=== PATIENT | male | born 1970 | race Caucasian/White ===

== ENCOUNTER 2019-12-11 09:33 | Emergency (ER) | payer MEDICAID ==
[~2019-12-11] VITALS: Ht 188 cm; Wt 83.6 kg
[2019-12-11] MEDS ORDERED: DOXYCYCLINE HYCLATE 100 MG CAPSULE PO ONE (11:15)
[2019-12-11 11:40] VITALS: BP 113/72
== END 2019-12-11 11:53 | disposition home or self-care (01) ==
LOC: EMS 09:36
DX: L01.00 Impetigo, unspecified (principal); L03.211 Cellulitis of face

== ENCOUNTER 2020-01-24 16:15 | Emergency (ER) | payer MEDICAID ==
[~2020-01-24] VITALS: Ht 188 cm; Wt 80.0 kg
[2020-01-24 17:44] VITALS: BP 149/95
[2020-01-24] MEDS ORDERED: SULFAMETHOX/TRIMETH DS 800-160 MG/TABLET PO ONE (18:00)
[2020-01-24] MEDS ORDERED: CEPHALEXIN MONOHYDRATE 500 MG CAPSULE PO ONE (18:00)
[2020-01-24] MEDS ORDERED: ACETAMINOPHEN 500 MG TABLET PO ONE (18:00)
[2020-01-24] MEDS ORDERED: KETOROLAC TROMETHAMINE 30 MG/ML VIAL IM ONE (19:30)
[2020-01-24 19:47] LABS: AMPHET/METH SCREEN,URINE POSITIVE (NEGATIVE); BARBITURATE SCREEN, URINE NEGATIVE (NEGATIVE); BENZODIAZEPINES SCREEN,URINE NEGATIVE (NEGATIVE); CANNABINOID SCREEN,URINE POSITIVE (NEGATIVE); COCAINE SCREEN,URINE NEGATIVE (NEGATIVE); METHADONE SCREEN, URINE NEGATIVE (NEGATIVE); OPIATE SCREEN,URINE NEGATIVE (NEGATIVE)
[2020-01-24 20:01] LABS: PHENCYCLIDINE SCREEN,URINE NEGATIVE (NEGATIVE)
== END 2020-01-24 20:00 | disposition left against medical advice (07) ==
LOC: EMS 16:15
DX: L97.411 Non-pressure chronic ulcer of right heel and midfoot limited to breakdown of skin (principal); L03.115 Cellulitis of right lower limb; F20.9 Schizophrenia, unspecified; F15.90 Other stimulant use, unspecified, uncomplicated; F12.90 Cannabis use, unspecified, uncomplicated; X58.XXXA Exposure to other specified factors, initial encounter; Y93.89 Activity, other specified; Y92.89 Other specified places as the place of occurrence of the external cause; Y99.8 Other external cause status
CPT/HCPCS: 73630; 80307; 93971; 99284; J1885

== ENCOUNTER 2023-02-28 19:35 | Emergency (ER) | payer OTHER ==
[~2023-02-28 19:35] MED LIST: CLIN-26 PO; LACT1CAP70 PO; PENI500T2 PO
== END 2023-02-28 21:10 | disposition left against medical advice (07) ==
LOC: EMS 20:12
DX: Z53.21 Procedure and treatment not carried out due to patient leaving prior to being seen by health care provider (principal)